=== PATIENT | female | born 1945 | race Caucasian/White ===

== ENCOUNTER → 2017-08-06 | Outpatient (CLI) | payer MEDICARE, OTHER ==
--- NOTE | 2017-08-06 12:16 | RAD ---
DATE: 08/06/2017 EXAM: MAMMO ENRIKE SCREENING BILATERAL HISTORY: Routine screening COMPARISON: 08/05/2016 This study was interpreted with the benefit of Computerized Aided Detection (CAD). The breast parenchyma is heterogeneously dense, which could reduce sensitivity of mammography. Breast parenchyma level C. FINDINGS: 2-D and 3-D tomosynthesis imaging was performed in CC and MLO projections. The fibroglandular tissues are heterogeneous and somewhat nodular in character. A 5-6 mm nodule in the anterior aspect of the right breast located just medial and superior to the level of nipple appears to be slightly larger than on the previous study. It is best demonstrated on CC tomographic image #26. No other new or enlarging breast densities are seen. There are scattered benign-appearing microcalcifications in the breasts. Some of these have progressed slightly. IMPRESSION: A small periareolar right breast nodule appears to have increased slightly in size. Sonographic evaluation is suggested. BI-RADS CATEGORY: 0 INCOMPLETE: NEEDS ADDITIONAL IMAGING EVALUATION AND/OR PRIOR MAMMOGRAMS FOR COMPARISON. RECOMMENDED FOLLOW-UP: ADD ADDITIONAL IMAGING PQRS compliance statement: Patient information was entered into a reminder system with a target due date for the next mammogram. Mammography is a sensitive method for finding small breast cancers, but it does not detect them all and is not a substitute for careful clinical examination. A negative mammogram does not negate a clinically suspicious finding and should not result in delay in biopsying a clinically suspicious abnormality. "Our facility is accredited by the [employer] Mammography [employer]."
== END | disposition home or self-care (01) ==
LOC: MAMMO 10:51
PROVIDERS: ATTEND Specialist
DX: Z12.31 Encounter for screening mammogram for malignant neoplasm of breast (principal); Z85.3 Personal history of malignant neoplasm of breast
CPT/HCPCS: 77063; G0202; 77067

== ENCOUNTER → 2017-08-12 | Outpatient (CLI) | payer MEDICARE, OTHER ==
--- NOTE | 2017-08-12 09:36 | RAD ---
EXAM: Right breast ultrasound. HISTORY: Nodule on mammographic screening. Sonography is requested. COMPARISON: 08/05/2016, 08/06/2017. FINDINGS: Sonographic evaluation of the right breast was performed from the 1:00 through 4:00 periareolar positions. There are multiple small hypoechoic nodules at the site of concern. One at the 1:00 position 2 cm from the nipple may correspond with the nodule of concern. It appears to contain small calcifications and measures 6 x 2 x 4 mm. It is oval and circumscribed. A suggestion of internal flow may be an artifact from calcification but this is unclear. Another 3 x 3 mm hypoechoic nodule is seen at the 1:00 position 2 cm from the nipple without clear internal flow. There is an adjacent coarse calcification at the 2:00 position. Another hypoechoic nodule at the 2:00 position measures 3 x 3 mm and appears mildly lobulated. Another at the 2:30 position 2.5 cm from the nipple is circumscribed and hypoechoic and measures 4 x 4 mm. A small oval nodule at the 4:00 position 2 cm from the nipple measures 3 x 2 mm and appears benign. Finally, a more regular appearing hypoechoic region at the 3:00 position 2.5 cm from the nipple contains a calcification and measures 4 x 3 mm. Suggested internal flow is likely artifactual from calcification. IMPRESSION: 1. Multiple hypoechoic nodules within the periareolar breast may represent complicated cysts or focally dilated ducts, but are indeterminate. Benignity is favored given multiplicity. Six-month follow-up ultrasound and right diagnostic mammography are recommended to confirm stability. 2. BI-RADS Category 3: Probably benign findings.
== END | disposition home or self-care (01) ==
LOC: US 08:03
PROVIDERS: ATTEND Specialist
DX: R92.1 Mammographic calcification found on diagnostic imaging of breast (principal); E11.9 Type 2 diabetes mellitus without complications
CPT/HCPCS: 76641

== ENCOUNTER → 2018-02-03 | Outpatient (CLI) | payer MEDICARE, OTHER ==
--- NOTE | 2018-02-03 15:46 | RAD ---
DATE: 02/03/2018 EXAM: MAMMO ENRIKE DIAG RT, BREAST RIGHT HISTORY: 6 month follow-up COMPARISON: 08/06/2017 This study was interpreted with the benefit of Computerized Aided Detection (CAD). The breast parenchyma is heterogeneously dense, which could reduce sensitivity of mammography. Breast parenchyma level C. FINDINGS: 2-D and 3-D tomosynthesis imaging was performed in CC and MLO projections. The fibroglandular tissues are heterogeneous and somewhat nodular in character. A 5-6 mm smooth nodule in the medial periareolar region as delineated on CC tomosynthesis images #29 is unchanged in size. Other smaller less clearly defined nodular opacities also appear to be unchanged. No new or enlarging breast densities are seen. Scattered benign type calcifications are present. No suspicious microcalcifications have developed. Right breast ultrasound, 08/06/2017: A targeted ultrasound exam of the right breast was performed in the areas where cysts and smooth hypoechoic nodules were visualized on the 08/12/2017 exam. At the 1:00 location approximately 2 cm from the nipple there is a 5 mm simple cyst which is unchanged. A nearby 3 mm cyst is also unchanged. At the 2:00 location approximately 2 cm from the nipple there is a tiny 3 mm hypoechoic nodule. There are faint low level internal echoes. It is unchanged and is probably a complicated cyst. At the 2:30 location 2.5 cm in the nipple there is a 4 cm simple appearing cyst which is unchanged. At the 3:00 location approximately 1.5 cm from the nipple an additional 4 mm probable cyst is noted. At the 3:00 location 2.5 cm in the nipple there is an unchanged 3 mm nodule with heterogeneous internal echoes. It is wider than tall. This is probably a complicated cyst or small fibroadenoma. At the 4:00 location approximately 2 cm from the nipple there is an unchanged 3 mm cyst. IMPRESSION: Stable right mammograms and targeted right breast ultrasound demonstrating numerous scattered benign-appearing breast nodules, probably represent a combination of simple cysts and complicated cysts. Follow-up bilateral 3-D mammography in 6 months and then at yearly intervals is suggested. BI-RADS CATEGORY: 3 PROBABLY BENIGN FINDING(S)-SHORT INTERVAL FOLLOW-UP SUGGESTED RECOMMENDED FOLLOW-UP: 6M 6 MONTH FOLLOW-UP PQRS compliance statement: Patient information was entered into a reminder system with a target due date for the next mammogram. Mammography is a sensitive method for finding small breast cancers, but it does not detect them all and is not a substitute for careful clinical examination. A negative mammogram does not negate a clinically suspicious finding and should not result in delay in biopsying a clinically suspicious abnormality. "Our facility is accredited by the [employer] Mammography [employer]."
== END | disposition home or self-care (01) ==
LOC: MAMMO 13:01
PROVIDERS: ATTEND Specialist
DX: R92.8 Other abnormal and inconclusive findings on diagnostic imaging of breast (principal)
CPT/HCPCS: 76641; 77065; G0279; 77061

== ENCOUNTER → 2018-08-11 | Outpatient (CLI) | payer MEDICARE, OTHER ==
--- NOTE | 2018-08-11 11:19 | RAD ---
DATE: 08/18/2018 EXAM: MAMMO ENRIKE SCREENING BILATERAL HISTORY: Routine screening COMPARISON: 08/06/2017 This study was interpreted with the benefit of Computerized Aided Detection (CAD). Breast Density: HETERO The breast parenchyma is heterogenously dense, which could reduce sensitivity of mammography. Breast parenchyma level C. FINDINGS: 2-D and 3-D tomosynthesis imaging was performed in CC and MLO projections. The fibroglandular tissues are somewhat nodular in character. Previous right breast ultrasound demonstrated multiple cysts. No new or enlarging breast densities are seen. Scattered microcalcifications are again noted with a distribution suggesting a benign etiology. IMPRESSION: Stable mammograms without evidence of malignancy. BI-RADS CATEGORY: 2 BENIGN FINDING(S) RECOMMENDED FOLLOW-UP: 12M 12 MONTH FOLLOW-UP PQRS compliance statement: Patient information was entered into a reminder system with a target due date for the next mammogram. Mammography is a sensitive method for finding small breast cancers, but it does not detect them all and is not a substitute for careful clinical examination. A negative mammogram does not negate a clinically suspicious finding and should not result in delay in biopsying a clinically suspicious abnormality. "Our facility is accredited by the [employer] Mammography [employer]."
== END | disposition home or self-care (01) ==
LOC: MAMMO 08:18
PROVIDERS: ATTEND Specialist
DX: Z12.31 Encounter for screening mammogram for malignant neoplasm of breast (principal)
CPT/HCPCS: 77063; 77067

== ENCOUNTER → 2019-08-12 | Outpatient (CLI) | payer MEDICARE, OTHER ==
--- NOTE | 2019-08-12 13:26 | RAD ---
DATE: 08/12/2019. EXAM: MAMMO ENRIKE SCREENING BILATERAL. HISTORY: Routine mammographic screening. COMPARISON: 08/11/2018. This study was interpreted with the benefit of Computerized Aided Detection (CAD). FINDINGS: Breast Density: HETERO The breast parenchyma is heterogenously dense, which could reduce sensitivity of mammography. Breast parenchyma level C.. Scattered and coarse calcifications are benign. Obscured nodules on the right are stable. There are no suspicious masses, microcalcifications or architectural distortion. BI-RADS CATEGORY: 2 BENIGN FINDING(S). RECOMMENDED FOLLOW-UP: 12M 12 MONTH FOLLOW-UP. PQRS compliance statement: Patient information was entered into a reminder system with a target due date 08/12/2020 for the next mammogram. Mammography is a sensitive method for finding small breast cancers, but it does not detect them all and is not a substitute for careful clinical examination. A negative mammogram does not negate a clinically suspicious finding and should not result in delay in biopsying a clinically suspicious abnormality. "Our facility is accredited by the [employer] Mammography [employer]."
== END | disposition home or self-care (01) ==
LOC: MAMMO 08:46
PROVIDERS: ATTEND Specialist
DX: Z12.31 Encounter for screening mammogram for malignant neoplasm of breast (principal); N64.89 Other specified disorders of breast; N63.10 Unspecified lump in the right breast, unspecified quadrant
CPT/HCPCS: 77063; 77067

== ENCOUNTER → 2020-08-13 | Outpatient (CLI) | payer MEDICARE, OTHER ==
--- NOTE | 2020-08-13 15:51 | RAD ---
DATE: 08/13/2020 9:00 AM EXAM: MAMMO ENRIKE SCREENING BILATERAL HISTORY: Screening COMPARISON: 08/11/2018, 08/12/2019 Bilateral CC and MLO views of the breasts were performed. Bilateral breast tomosynthesis was performed in CC and MLO projections. This study was interpreted with the benefit of Computerized Aided Detection (CAD). FINDINGS: Breast Density: HETERO The breast parenchyma Is heterogeneously dense, which could reduce sensitivity of mammography. Breast parenchyma level C No suspicious masses, microcalcifications or architectural distortion is present to suggest malignancy in either breast. The visualized axillae are unremarkable. IMPRESSION: No mammographic evidence of malignancy. BI-RADS CATEGORY: 1 NEGATIVE RECOMMENDED FOLLOW-UP: 12M 12 MONTH FOLLOW-UP Annual screening mammography is recommended, unless clinically indicated sooner based on symptoms or change in physical exam. PQRS compliance statement: Patient information was entered into a reminder system with a target due date for the next mammogram. Mammography is a sensitive method for finding small breast cancers, but it does not detect them all and is not a substitute for careful clinical examination. A negative mammogram does not negate a clinically suspicious finding and should not result in delay in biopsying a clinically suspicious abnormality. "Our facility is accredited by the [employer] Mammography Program."
== END ==
LOC: MAMMO 09:10
PROVIDERS: ATTEND Specialist
DX: Z12.31 Encounter for screening mammogram for malignant neoplasm of breast (principal)
CPT/HCPCS: 77063; 77067

== ENCOUNTER → 2021-05-31 | Outpatient (CLI) | payer MEDICARE ==
--- NOTE | 2021-05-31 14:48 | RAD ---
EXAMINATION: MG DIGITAL UNILAT DIAGNOSTIC MAMMO WITH ENRIKE, US BREAST LTD LT History: Reason: GALACTORIA AND LEFT BREAST TENDERNESS Comparison: Multiple prior mammograms dating back to 06/02/2014. Technique: Left breast digital diagnostic mammogram views were obtained. CAD was utilized. 3-D tomos ynthesis images were acquired. Focused left breast ultrasound in the retroareolar region. Findings: Breast Tissue Density B : There are scattered areas of fibroglandular density. There are no suspicious masses, suspicious microcalcifications, or architectural distortion. Ultrasound of the retroareolar left breast demonstrates normal-appearing ducts. No mass, cyst, or dil ated ducts. IMPRESSION: No evidence of malignancy. Recommend routine screening. BI-RADS category 1: Negative. The images were reviewed with computer aided detection. Patient information is entered into the reminder system with a target due date for the next screening mammogram. Mammography is the most sensitive method for finding small breast cancers, but it does not detect the m all and is not a substitute for careful clinical examination. A negative mammogram does not negate a clinically suspicious finding and should not result in delay in biopsying a clinically suspicious a bnormality. "Our facility is accredited by the [employer] Mammography [employer]." Electronically signed by: Marie Ramos MD (05/31/2021 2:46 PM) [id number]
== END ==
LOC: MAMMO 12:43
PROVIDERS: ATTEND Specialist
DX: N64.3 Galactorrhea not associated with childbirth (principal)
CPT/HCPCS: 76642; 77065; G0279; 77061

== ENCOUNTER → 2021-08-21 | Outpatient (CLI) | payer MEDICARE ==
--- NOTE | 2021-08-23 10:53 | RAD ---
Study: MG Digital Screening Unilateral W/maday History: Routine screening. Comparison: Most recent screening exam of 08/13/2020. Technique: Routine 2D and 3D tomosynthesis digital mammogram views were obtained of the right breast. Interpretation was assisted with the use of computer-aided detection. Findings: Breast Tissue Density B : There are scattered areas of fibroglandular density. Scattered microcalcifications and several asymmetries have not changed across comparison exams. There are no dominant masses, suspicious microcalcifications, or architectural distortion. IMPRESSION: No mammographic evidence of a right breast malignancy. Recommend routine bilateral screening mammogra phy in June 2022 given a reported left breast diagnostic mammogram at a different facility in 2020. BI-RADS category 2: Benign findings. Patient information is entered into the reminder system with a target due date for the next screening mammogram. "Our facility is accredited by the [employer] Mammography Program." Electronically signed by: ARNAUD HUMPHREY MD (08/23/2021 10:50 AM) [id number]
== END ==
LOC: MAMMO 09:23
PROVIDERS: ATTEND Specialist
DX: Z12.31 Encounter for screening mammogram for malignant neoplasm of breast (principal)
CPT/HCPCS: 77063; 77067

== ENCOUNTER → 2021-11-13 | Outpatient (CLI) | payer MEDICARE ==
--- NOTE | 2021-11-13 08:33 | RAD ---
CT LOW DOSE LUNG SCREEN dated 11/13/2021 7:50 AM Indication:Reason: H/O SMOKING FOR 35 YEARS, LUNG CA SCREENING. / Spl. Instructions: / History: Comparison: No comparison is available. Technique: Helical low-dose noncontrast CT images were performed. One or more of the following individualized dose reduction techniques were utilized for this examinat ion: 1. Automated exposure control 2. Adjustment of the mA and/or kV according to patient size 3. Use of iterative reconstruction technique Findings: There is a calcified granuloma peripherally in the left lower lobe. There are several small apparentl y noncalcified nodules demonstrated in the lungs. A 3 x 3 mm nodule is seen peripherally in the left lower lobe (image 23 of axial series 2). Several nodules are seen in the right middle lobe. There is a 5 x 4 mm nodule (image 34) with an adjacent 3 x 3 mm nodule at the same level. An additional 3 mm n odule is seen more anteriorly (image 37) and there is a 2 mm nodule medially (image 38). No suspiciou s nodule is seen. The central airways show no obstruction. No enlarged lymph nodes are seen. There is fairly extensive coronary artery calcification involving all the vessels. Images through the upper abdomen show gallstones in the gallbladder. There are mildly prominent lymph nodes near the shayy hepatis and celiac axis measuring up to about 1 cm. Unless the patient has a hi story of malignancy, these are likely reactive. IMPRESSION: There are small nodules with low likelihood of malignancy. Follow-up noncontrast low-dose CT in one y ear is recommended. Lung-RADS category 2. Electronically signed by: Sixto Ledbetter Jr., MD (11/13/2021 8:31 AM) [email or web address]
== END ==
LOC: CT 07:46
PROVIDERS: ATTEND Specialist
DX: Z12.2 Encounter for screening for malignant neoplasm of respiratory organs (principal); R91.8 Other nonspecific abnormal finding of lung field; J84.10 Pulmonary fibrosis, unspecified; I25.10 Atherosclerotic heart disease of native coronary artery without angina pectoris; F17.210 Nicotine dependence, cigarettes, uncomplicated
CPT/HCPCS: 71271